=== PATIENT | male | born 1945 | race Caucasian/White ===

== ENCOUNTER 2021-02-20 12:37 | Emergency (ER) | payer OTHER, SELFPAY ==
[2021-02-20 13:03] VITALS: BP 145/72; PULSE 60; RESP 15; TEMP 37.1; O2SAT 100
[2021-02-20 13:38] LABS: Add Manual Diff / Slide Review NO; Basophils Absolute Auto 0 /uL (0-100); Basophils Percent Auto 0.5 % (0-2); Eosinophils Absolute Auto 200 /uL (0-450); Hematocrit 46.5 % (41-53); Hemoglobin 15.9 g/dL (13.5-17.5); Lymphocytes Absolute Auto 1400 /uL (1100-4500); Lymphocytes Percent Auto 21.2 % (25-40); Mean Corpuscular HGB Conc 34.1 % (30-36); Mean Corpuscular Hemoglobin 30.2 PG (26-34); Mean Corpuscular Volume 88.6 fL (80-100); Monocytes Absolute Auto 500 /uL (0-900); Neutrophils Absolute Auto 4300 /uL (1500-7000); Neutrophils Percent Auto 67.3 % (50-75); Platelet Count 114 X10^3/uL (150-400); Red Blood Cell Count 5.25 X10^6/uL (4.5-5.9); Red Cell Distribution Width 14.5 % (11.6-14.8); White Blood Cell Count 6.4 X10^3/uL (4.5-11.0)
[2021-02-20 13:49] LABS: Alanine Aminotransferase 18 IU/L (<50); Albumin 4.3 g/dL (3.5-5.0); Albumin Globulin Ratio 1.5 (1.0-2.8); Alkaline Phosphatase 57 U/L (38-126); Aspartate Aminotransferase 25 IU/L (17-59); BUN Creatinine Ratio 21.1 (6-22); Bilirubin Total 1.4 mg/dL (0.2-1.3); Blood Urea Nitrogen 20 mg/dL (9-20); Calcium 9.6 mg/dL (8.4-10.2); Carbon Dioxide 25 mmol/L (22-32); Chloride 104 mmol/L (98-107); Estimated Glomerular Filt Rate > 60.0 mL/min (>60); Globulin 2.9 g/dL (1.7-4.1); Glucose 108 mg/dL (80-110); HEMOLYSIS 18 (0-50); Lipase 62 U/L (23-300); Potassium 4.3 mmol/L (3.4-5.1); Sodium 135 mmol/L (137-145); Total Protein 7.2 g/dL (6.3-8.2)
[2021-02-20 14:47] VITALS: BP 154/77; PULSE 54; RESP 14; O2SAT 98
--- NOTE | 2021-02-20 15:56 | ED.ABDPAIN ---
HPI - Abdominal Pain General Chief Complaint: Abdominal Pain Stated Complaint: [facility], low back pain Time Seen by Provider: 02/20/21 15:43 Source: patient Mode of arrival: Ambulatory Limitations: no limitations History of Present Illness HPI narrative: Patient is a 75-year-old male with history of aortic valve replacement presenting today with 1 week of right flank pain now radiating to his abdomen. He says it actually started after a drive to to, 1 week ago. He denies any radiation to his like. He is now having some right lower quadrant pain and tenderness as well. He denies nausea vomiting fever or chills. Related Data Previous Rx's Medication Instructions Recorded methocarbamol 750 mg tablet 750 mg PO Q8H PRN #14 tab 02/20/21 Review of Systems Review of Systems Narrative: GENERAL: Denies chills, fatigue, malaise, fever, sweats, travel HEENT: Denies sinus pain, ear pain, sore throat, difficulty swallowing, neck pain RESPIRATORY: Denies dyspnea, cough, wheezing, hemoptysis, sputum. CARDIOVASCULAR: Denies chest pain, palpitations, orthopnea, edema GASTROINTESTINAL: See HPI Denies nausea, vomiting, diarrhea, constipation, melena. : + flank pain denies any hematuria painful or frequent urination MUSCULOSKELETAL: Denies weakness, joint pain, or bony pain SKIN: No rash, no erythema, no pruritus NEUROLOGIC: Denies weakness, dizziness, headache, numbness, change in speech, confusion PSYCHIATRIC: No concerning psychosocial issues. 12 point review of systems is negative except for those stated above and HPI Patient History Social History Smoking Status: Former smoker Smoking Status: Former smoker alcohol intake frequency: 3 or more drinks per day Alcohol type: beer Substance Use Type: marijuana Exam Initial Vital Signs Initial Vital Signs: Vital Signs Temperature 98.8 F 02/20/21 13:03 Pulse Rate 60 02/20/21 13:03 Respiratory Rate 15 02/20/21 13:03 Blood Pressure 145/72 H 02/20/21 13:03 Pulse Oximetry 100 02/20/21 13:03 GENERAL: Alert 75-year-old male appears comfortable HEENT: Head atraumatic,EOMI, pupils reactive, face symmetric, moist mucous membranes CARDIOVASCULAR: Regular rate and rhythm without murmurs, rubs or gallops. RESPIRATORY: Breath sounds equal bilaterally, no wheezes rales or rhonchi. ABDOMEN: Soft, mild right-sided tenderness no Rovsing sign the no Almeida sign bowel sounds normal : N mild right CVA tenderness EXTREMITIES: Normal range of motion, no clubbing or edema. Neurovascularly intact NEUROLOGICAL: Alert and oriented x4.Normal gait and speech. SKIN: Warm, dry, no laceration, no petechiae, no rashes or lesions. Course Orders Ordered: Discontinued Medications Ketorolac Tromethamine (Ketorolac 30 Mg/Ml Vial) 15 mg IV NOW ONE Stop: 02/20/21 15:57 Last Admin: 02/20/21 16:33 Dose: 15 mg Documented by: [email or web address] Vital Signs Vital signs: Vital Signs - 8 hr 02/20/21 13:03 02/20/21 14:47 Temperature 98.8 F Pulse Rate 60 54 L Respiratory Rate 15 14 Blood Pressure 145/72 H 154/77 H Pulse Oximetry 100 98 MDM - Abdominal Pain Lab Data Result diagrams: 02/20/21 13:32 02/20/21 13:32 Labs: Lab Results 02/20/21 02/20/21 Range/Units 13:32 13:32 WBC 6.4 (4.5-11.0) X10^3/uL RBC 5.25 (4.5-5.9) X10^6/uL Hgb 15.9 (13.5-17.5) g/dL Hct 46.5 (41-53) % MCV 88.6 (80-100) fL MCH 30.2 (26-34) PG MCHC 34.1 (30-36) % RDW 14.5 (11.6-14.8) % Plt Count 114 L (150-400) X10^3/uL Neut % (Auto) 67.3 (50-75) % Lymph % (Auto) 21.2 L (25-40) % Sabine % (Auto) 8.0 (3-14) % Eos % (Auto) 3.0 (2-4) % Baso % (Auto) 0.5 (0-2) % Neut # (Auto) 4300 (8844-2893) /uL Lymph # (Auto) 1400 (4485-5044) /uL Sabine # (Auto) 500 (0-900) /uL Eos # (Auto) 200 (0-450) /uL Baso # (Auto) 0 (0-100) /uL Sodium 135 L (137-145) mmol/L Potassium 4.3 (3.4-5.1) mmol/L Chloride 104 (98-107) mmol/L Carbon Dioxide 25 (22-32) mmol/L BUN 20 (9-20) mg/dL Creatinine 0.95 (0.66-1.25) mg/dL Estimated GFR > 60.0 (>60) mL/min BUN/Creatinine Ratio 21.1 (6-22) Glucose 108 (80-110) mg/dL Calcium 9.6 (8.4-10.2) mg/dL Total Bilirubin 1.4 H (0.2-1.3) mg/dL AST 25 (17-59) IU/L ALT 18 (<50) IU/L Alkaline Phosphatase 57 (38-126) U/L Total Protein 7.2 (6.3-8.2) g/dL Albumin 4.3 (3.5-5.0) g/dL Globulin 2.9 (1.7-4.1) g/dL Albumin/Globulin Ratio 1.5 (1.0-2.8) Lipase 62 (23-300) U/L Point of care testing: Urine Dip Bedside Urine Glucose Negative Bedside Urine Bilirubin - Negative Bedside Urine Ketone - Negative Urine Specific [place] 1.020 Bedside Urine Occult Blood - Negative Bedside Urine pH 6.0 Bedside Urine Protein - Negative Bedside Urine Urobilinogen - Negative Bedside Urine Nitrite - Negative Bedside Urine Leukocytes - Negative Esterase Imaging Data CT scan - abdomen/pelvis: Radiologist's Impression: PROCEDURE: CT ABDOMEN PELVIS W CON INDICATIONS: right llq pain TECHNIQUE: After the administration of intravenous contrast, axial sections acquired from the lung bases to the pubic symphysis. Coronal and sagittal reformats were performed. For radiation dose reduction, the following was used: automated exposure control, adjustment of mA and/or kV according to patient size. COMPARISON: None. FINDINGS: Image quality: Excellent. Lung bases: Unremarkable except for what appears to be mild lung base scarring medially on the left.. Heart: No significant findings. ABDOMEN: Liver: Unremarkable. Gallbladder: Unremarkable. Biliary ducts: Unremarkable. Pancreas: Unremarkable. Spleen: Unremarkable. Adrenal Glands: Unremarkable. Kidneys and Ureters: Unremarkable. Stomach and Bowel: Stomach, small bowel loops, and colon are unremarkable. Peritoneum: No abnormal intraperitoneal fluid. No free air. Ventral Wall: No hernias. Abdominal Nodes: No retroperitoneal or mesenteric adenopathy by size criteria. Vessels: Aorta and inferior vena cava are normal in size. PELVIS: Pelvic Organs: Unremarkable. Bladder: Unremarkable. Pelvic Nodes: No enlarged lymph nodes. Miscellaneous: No hernias are seen. A normal or abnormal appendix is not found at the right lower quadrant but there is no secondary CT evidence of acute appendicitis. Bones: Unremarkable. IMPRESSION: Source of right lower quadrant pain is not seen. A normal or abnormal appendix could not be located. No secondary CT evidence of appendicitis is present, however. Dictated by: James Aguero M.D. on 02/20/2021 at 16:16 Approved by: James Aguero M.D. on 02/20/2021 at 16:18 ECG Data Interpretation: Sinus rhythm rate 54 MO interval 190 QRS 114 QTC 417 Q-wave noted in lead [address] change however this looks almost identical to his previous EKG in 2015. He has a slight ST depression in precordial leads again very similar to his last EKG. MDM Narrative Medical decision making narrative: Patient having right flank pain and mild right lower quadrant pain. Initially possibly kidney stone, or pedis itis however patient appears quite comfortable for kidney stone. He states that he is used to pain. However blood work and CT do not show any abnormality. He really says it started after a car ride. I suspect more of a muscle spasm. I have added muscle relaxer to his regimen. I would recommend outpatient follow-up. Patient has some odd stable abnormalities in his EKG. He has absolutely no chest pain. CT was done with contrast it was not and angio however I would do not believe him to have a dissection. Discharge Plan Departure Patient Disposition: Home Clinical Impression: Back pain without sciatica Instructions: Low Back Pain Activity Restrictions/Additional Instructions: *You have been diagnosed with back pain *What to do: Increase activity as tolerated, light stretching, heating pad. At this time blood work and CT scan are overall reassuring. No sign of infection. No sign of kidney stone or appendicitis. *Continue to take medications as directed Motrin 600 mg every 6-8 hours if needed for pain Tylenol 1000 mg every 6 hours if needed for pain Methocarbamol 750 mg every 8 hours if needed for muscle spasm--do not drive or operate heavy machinery while taking *Follow up with your primary care provider in 2-3 days *Return to ER if you should have increasing back or abdominal pain, changes in bowel or bladder habits, numbness tingling or weakness in extremities or any new, worsening or concerning symptoms Prescriptions: New methocarbamol 750 mg tablet 750 mg PO Q8H PRN (Reason: muscle spasm) Qty: 14 RF: 0 Referrals: Morris Silva DO [Primary Care Provider] -
[2021-02-20] MEDS: KETOROLAC 30 MG/ML VIAL 15 MG IV (16:33)
[2021-02-20 17:35] VITALS: BP 160/80; PULSE 62; RESP 16; O2SAT 98
== END 2021-02-20 17:35 | disposition home or self-care (01) ==
PROVIDERS: Emergency Provider Emergency Medicine; PCP Family Medicine
DX: R10.31 Right lower quadrant pain (principal); M54.5 Low back pain
CPT/HCPCS: 36415; 74177; 80053; 81003; 83690; 85025; 93005; 93010; 96374; 99284; J1885; Q9967

== ENCOUNTER 2024-03-05 10:29 | Emergency (ER) | payer OTHER, SELFPAY ==
[2024-03-05 10:33] VITALS: BP 183/62; PULSE 61; RESP 14; TEMP 36.1; O2SAT 98; BMI 25.4
[2024-03-05] MEDS: FLUORESCEIN 1 MG STRIP EYE-LEFT (11:25)
[2024-03-05] MEDS: PROPARACAINE 0.5% OPHTH SOL 1 DROPS EYE-LEFT (11:26)
--- NOTE | 2024-03-05 11:53 | ED.SKABFB ---
HPI - Skin/Abscess/Foreign Bdy <Quin Marcum PA-C - Last Filed: 03/05/24 12:06> General Chief complaint: Skin/Abscess/Foreign Body Stated complaint: painful brown spot on his forehead Time Seen by Provider: 03/05/24 10:57 Source: patient Mode of arrival: Ambulatory Limitations: no limitations History of Present Illness HPI narrative: This is a 78-year-old patient presenting with concern for lesions on the left side of his forehead with some mild swelling around his left eye and associated pain. 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 He states on Friday or Friday he 1st noticed a prickling sharp sensation in his skin before he saw any lesions develop then by Friday evening he had small blisters that had crept up on his skin on the left side of his forehead and gradually affecting the left side of his scalp on the top of his head as well as his left eyebrow and with some swelling around his left eyelids. He denies any vision change at all but does state there is a little bit of discomfort sometimes with blinking and moving his eyes around because his eyelids are somewhat swollen and a little tender. He did have chickenpox as a child and he has not been vaccinated for shingles. He denies fevers, chills, rash or lesions anywhere else on his body, vision change, eye pain, headaches or any other symptoms or concerns. Related Data Previous Rx's Medication Instructions Recorded methocarbamol 750 mg tablet 750 mg PO Q8H PRN muscle spasm #14 02/20/21 tabs lidocaine 5 % topical ointment 1 applic topical QID PRN shingles 03/05/24 pain 14 days #30 grams valacyclovir 1 gram tablet 1,000 mg PO Q8H zoster V1 03/05/24 /opthalmic distribution 10 days #30 tabs Allergies Allergy/AdvReac Type Severity Reaction Status Date / Time No Known Drug Allergies Allergy Verified 03/05/24 10:33 Review of Systems <Quin Marcum PA-C - Last Filed: 03/05/24 12:06> Review of Systems Narrative: see HPI Patient History <Quin Marcum PA-C - Last Filed: 03/05/24 12:06> Social History Smoking Status: Current some day smoker Smoking Status: Current some day smoker alcohol intake frequency: 0-2 drinks per day Alcohol type: beer Substance Use Type: marijuana Exam <Quin Marcum PA-C - Last Filed: 03/05/24 12:06> Narrative Exam Narrative: GENERAL: [78] year old patient appears stated age. Well-developed patient, in mild distress. HEAD: patient has no facial droop, normal sensation there is a subtle raised rash with some broken open small blisters present on the patient's left forehead and scalp over the frontal and parietal region not affecting the ear or posterior scalp with no involvement of the right side of the head. Some lesions affect the eyebrow; see eyes and ENT Atraumatic. Normocephalic. EYES: the left eye is very slightly injected as compared to the right. The left eyelids most notably the upper eyelid are slightly inflamed and mildly erythematous slightly tender to palpation. with eyelid eversion there are no lesions noted in the underside of the eyelid. there are a few small less than 2 mm possibly recently vesicular lesions on the patient's eyelid at the margin of the upper eyelid.Pupils equal round and reactive. Extraocular motions intact And pain-free. No scleral icterus. No injection or drainage. On fluorescein exam there is no uptake of fluorescein in the affected left eye. Right eye was not examined. The ocular pressure measurement of the left eye is 17; right eye was not examined. ENT: Nose without bleeding, purulent drainage. Throat without erythema, tonsillar hypertrophy or exudate. Airway patent.Left ear and ear canal normal in appearance, TM is pearly taylor slightly injected no lesions noted of the ear or ear canal. CARDIOVASCULAR: Regular rate and rhythm without murmurs, gallops, or rubs. RESPIRATORY: Clear to auscultation. Breath sounds equal bilaterally. No wheezes, rales, or rhonchi. EXTREMITIES: No edema or joint tenderness. NEURO: AOx3. SKIN: See head and ENT/EYES No rash or erythema of visible areas Initial Vital Signs Initial Vital Signs: Vital Signs Temperature 97.0 F L 03/05/24 10:33 Pulse Rate 61 03/05/24 10:33 Respiratory Rate 14 03/05/24 10:33 Blood Pressure 183/62 H 03/05/24 10:33 Pulse Oximetry 98 03/05/24 10:33 Oxygen Delivery Method Room Air 03/05/24 10:33 <Tammie Rico DO - Last Filed: 03/07/24 11:26> Initial Vital Signs Initial Vital Signs: Vital Signs Temperature 97.0 F L 03/05/24 10:33 Pulse Rate 61 03/05/24 10:33 Respiratory Rate 14 03/05/24 10:33 Blood Pressure 183/62 H 03/05/24 10:33 Pulse Oximetry 98 03/05/24 10:33 Oxygen Delivery Method Room Air 03/05/24 10:33 Course <Quin Marcum PA-C - Last Filed: 03/05/24 12:06> Orders Ordered: Discontinued Medications Fluorescein Sodium (Fluorescein 1 Mg Strip) 1 mg EYE-LEFT NOW ONE Stop: 03/05/24 10:58 Last Admin: 03/05/24 11:25 Dose: 1 mg Documented By: YENY Proparacaine HCl (Proparacaine 0.5% Ophth Dee) 1 drops EYE-LEFT NOW ONE Stop: 03/05/24 10:58 Last Admin: 03/05/24 11:26 Dose: 1 drop Documented By: YENY Vital Signs Vital signs: Vital Signs - 8 hr 03/05/24 10:33 Temperature 97.0 F L Pulse Rate 61 Respiratory Rate 14 Blood Pressure 183/62 H Pulse Oximetry 98 Oxygen Delivery Method Room Air <Tammie Rico DO - Last Filed: 03/07/24 11:26> Orders Ordered: Discontinued Medications Fluorescein Sodium (Fluorescein 1 Mg Strip) 1 mg EYE-LEFT NOW ONE Stop: 03/05/24 10:58 Last Admin: 03/05/24 11:25 Dose: 1 mg Documented By: YENY Proparacaine HCl (Proparacaine 0.5% Ophth Dee) 1 drops EYE-LEFT NOW ONE Stop: 03/05/24 10:58 Last Admin: 03/05/24 11:26 Dose: 1 drop Documented By: YENY Vital Signs Vital signs: Vital Signs - 8 hr 03/05/24 10:33 Temperature 97.0 F L Pulse Rate 61 Respiratory Rate 14 Blood Pressure 183/62 H Pulse Oximetry 98 Oxygen Delivery Method Room Air MDM - Skin/Abscess/Foreign Bdy <Quin Marcum PA-C - Last Filed: 03/05/24 12:06> Differential Diagnosis Differential diagnosis: Likely herpes zoster Medical Records Attestation: I reviewed the patient's medical records. [facility] Narrative Medical decision making narrative: This is a generally healthy 78-year-old male presenting with concern for rash/ lesions on his left forehead affecting his upper eyelid with symptoms since Friday. Exam and history are very consistent with herpes zoster. Evaluated for eye involvement, patient has no vision changes and does have involvement of the eyelids which is mild, there is no fluorescein uptake ocular pressure is normal 17 in the affected left eye. Counseled the patient that can not fully evaluate for retinal involvement or viral involvement of the eye from the emergency department, and that he should consider seeking further evaluation with Ophthalmology, that certainly if his symptoms worsen at all regarding his eye in terms of blurred vision eye pain or any other worsening symptoms he should seek re-evaluation immediately/see a specialist. Patient was prescribed valacyclovir 1 g TID for 10 days and also topical lidocaine to be used only on lesions in areas of discomfort away from the eye itself. He has no other concerning symptoms suggesting more broad involvement or generalized illness. Return precautions provided, follow-up plan discussed, all questions answered. Discharge Plan Departure Patient Disposition: Home Clinical Impression: Herpes zoster Qualifiers: Herpes zoster complications: without complications Qualified Code(s): B02.9 - Zoster without complications Activity Restrictions/Additional Instructions: *You have been diagnosed with [Shingles ] *What to do: *Please continue to take your regular medications as directed. [ 2] New medication prescriptions sent to your pharmacy: [ topical lidocaine, valacyclovir ] [ ] New medication written as a paper prescription [ ] No new medications given *Please follow up with your primary care provider in 2-3 days, call for an appointment. Let them know you were seen in the Emergency Department and that we ask that you be seen in follow up. We will electronically transmit a record of today's note if your PCP is in our system. your exam today is consistent with shingles outbreak. The location of the lesions follow a nerve distribution that suggests you could have eye involvement, based on the exam today there is no evidence that your eye itself is affected you do have some lesions around her eyelid and some swelling around your eyelid. Your ocular pressure of the affected side was normal today at 17. we also looked with some dye to see if there was any abnormal uptake that could indicate the virus affecting the eye and we did not see this. That being said it is very important that if you have new symptoms such as General worsening symptoms, any eye changes such as loss of vision, blurry vision or change in vision, eye pain or if you develop increasing ear pain or worsening lesions you should seek re-evaluation immediately; either return to the emergency department or see an eye doctor. Is not unreasonable to seek further evaluation with an eye doctor at this time even if you do not have worsening symptoms. Occasionally zoster infections can affect and damage the retina and I do not have the ability to evaluate for this in the emergency department. Likely the antivirals will minimize the risk of your symptoms worsening and I also did prescribe topical lidocaine which you can use over the painful lesions you have on your scalp and forehead but do not use these very close to your eye or on your eyelid. I also recommend Tylenol for pain as needed. You can talk to your primary care doctor about getting the shingles vaccine in the future once your symptoms have improved. I hope you feel better soon. *If you do not have a primary care provider please contact the [facility] Resource line at [phone]. They will ask some questions about your medical history and help get you set up with a doctor in the community. *Return to Emergency Department if you should have any new, worsening or concerning symptoms, such as [fever greater than 101 F, shaking chills, worsening pain, persistent vomiting or other bothersome symptoms] Prescriptions: New valacyclovir 1 gram tablet 1,000 mg PO Q8H 10 Days Qty: 30 0RF lidocaine 5 % ointment 1 applic topical QID PRN (Reason: shingles pain) 14 Days Qty: 30 0RF No Action methocarbamol 750 mg tablet 750 mg PO Q8H PRN (Reason: muscle spasm) Qty: 14 0RF Referrals: Morris Silva DO [Primary Care Provider] - Stand Alone Forms: Patient Portal/API ED Sign-out <Tammie Rico DO - Last Filed: 03/07/24 11:26> Cosign ED Attending Chanellature Attestation: I was available for consultation.
[2024-03-05 12:04] VITALS: BP 172/99; PULSE 55; RESP 15; TEMP 36.6; O2SAT 99
== END 2024-03-05 12:00 | disposition home or self-care (01) ==
PROVIDERS: Emergency Provider Student in an Organized Health Care Education/Training Program; PCP Family Medicine
DX: B02.9 Zoster without complications (principal)
CPT/HCPCS: 99282

== ENCOUNTER → 2024-10-26 16:54 | Outpatient (CLI) | payer OTHER, SELFPAY ==
--- NOTE | 2024-10-26 16:56 | DI.MRI.S_ITS ---
PROCEDURE: MR ANGIO HEAD WO CON INDICATIONS: APHAGIA AND POOR BALANCE LASTING 1-2 MINUTES TECHNIQUE: Noncontrast axial 3-D [id number] MR angiogram, with 3-dimensional maximum intensity projection (MIP) reformats of the internal carotid arteries and posterior circulation then performed. COMPARISON: None. FINDINGS: Image quality: Excellent. Anterior circulation: Mild stenosis within the supraclinoid internal carotid arteries bilaterally. Anterior and middle cerebral arteries are patent. No aneurysms. No occlusions. Posterior circulation: Visualized portions of the vertebral arteries demonstrate normal caliber, and join to form a normal appearing basilar artery. High-grade right posterior cerebral artery origin stenosis. Near origin of the left posterior cerebral artery which is patent. No aneurysms or occlusions. IMPRESSION: 1. Anterior and posterior circulation stenoses as described above. 2. No acute process. Dictated by: Roberto Rm M.D. on 10/27/2024 at 10:40 Approved by: Roberto Rm M.D. on 10/27/2024 at 10:43
--- NOTE | 2024-10-26 16:57 | DI.MRI.S_ITS ---
PROCEDURE: MR ANGIO NECK W CON INDICATIONS: APHAGIA AND POOR BALANCE LASTING 1-2 MINUTES TECHNIQUE: Axial and sagittal TruFISP through the neck. Coronal dynamic MRA after the administration of contrast in the arterial and venous phases, with rotating 3-dimensional maximum intensity projection (MIP) reformats constructed from subtraction images. COMPARISON: None. FINDINGS: Image quality: Excellent. Thoracic aortic arch is patent, with standard branching anatomy. The innominate artery is patent. Moderate right subclavian artery origin stenosis. High-grade right vertebral artery origin stenosis. High-grade right mid vertebral artery stenosis. High-grade right distal vertebral artery stenosis. Right common carotid artery is patent. There is roughly 20% stenosis of the proximal right internal carotid artery. Right external carotid artery is patent. Left common carotid artery is patent. There is mild, roughly 20% stenosis of the proximal left internal carotid artery. Left external carotid artery is patent. Mild left subclavian artery origin stenosis. Moderate well black stenosis within the proximal left subclavian artery just proximal to the left vertebral artery origin. Moderate left vertebral artery origin stenosis. Soft tissues of the neck are within normal limits. IMPRESSION: 1. Mild bilateral internal carotid artery stenosis. 2. Right greater than left vertebral artery stenosis. 3. Bilateral subclavian artery stenoses. Any quantitative measurements of stenosis were performed using NASCET criteria. Dictated by: Roberto Rm M.D. on 10/27/2024 at 10:23 Approved by: Roberto Rm M.D. on 10/27/2024 at 10:26
== END ==
PROVIDERS: PCP Family Medicine; Referring Provider Nurse Practitioner; Visit Provider Nurse Practitioner
DX: I65.23 Occlusion and stenosis of bilateral carotid arteries (principal); R47.01 Aphasia; I65.03 Occlusion and stenosis of bilateral vertebral arteries; I70.208 Unspecified atherosclerosis of native arteries of extremities, other extremity
CPT/HCPCS: 70544; 70549; A9579